=== PATIENT | female | born 1965 | race African-American/Black ===

== ENCOUNTER 2017-10-27 23:29 | Observation (INO) | payer OTHER ==
[2017-10-27] MEDS ORDERED: SODIUM CHLORIDE 0.9% 1,000 ML IV STA (23:33)
[2017-10-27] MEDS ORDERED: LORazepam 2 MG/ML INJ IV STA (23:33)
--- NOTE | 2017-10-27 23:36 | ED ---
General Adult HPI - General Stated complaint: Seizure Time Seen by Provider: 10/27/17 23:33 Source: RN notes reviewed, old records reviewed - History of Present Illness Initial comments: This is a 52-year-old female to the ER for evaluation. Patient is brought in complaining of new onset seizure, for evaluation of seizure. Patient's brought in by EMS, patient had seizure today, patient's going to crack withdrawal, cocaine withdrawal. Patient denies any other drug or alcohol use today. No injury or pain from seizure. No headache. No recent fevers. - Related Data Allergies Allergy/AdvReac Type Severity Reaction Status Date / Time Penicillins Allergy Unknown Unknown Verified 10/27/17 23:39 Review of Systems ROS Statement: Those systems with pertinent positive or pertinent negative responses have been documented in the HPI. ROS Other: All systems not noted in ROS Statement are negative. General Exam Limitations: altered mental status General appearance: alert, in no apparent distress Head exam: Present: atraumatic, normocephalic, normal inspection Eye exam: Present: normal appearance, PERRL, EOMI. Absent: scleral icterus, conjunctival injection, periorbital swelling ENT exam: Present: normal exam, mucous membranes moist Neck exam: Present: normal inspection. Absent: tenderness, meningismus, lymphadenopathy Respiratory exam: Present: normal lung sounds bilaterally. Absent: respiratory distress, wheezes, rales, rhonchi, stridor Cardiovascular Exam: Present: regular rate, normal rhythm, normal heart sounds. Absent: systolic murmur, diastolic murmur, rubs, gallop, clicks GI/Abdominal exam: Present: soft, normal bowel sounds. Absent: distended, tenderness, guarding, rebound, rigid Extremities exam: Present: normal inspection, full ROM, normal capillary refill. Absent: tenderness, pedal edema, joint swelling, calf tenderness Back exam: Present: normal inspection Neurological exam: Present: alert, oriented X3, CN II-XII intact Psychiatric exam: Present: normal affect, normal mood Skin exam: Present: warm, dry, intact, normal color. Absent: rash Course Vital Signs 10/27/17 10/28/17 10/28/17 23:32 00:38 01:40 Temperature 97.9 F Pulse Rate 86 83 66 Respiratory 18 18 18 Rate Blood Pressure 108/73 103/63 97/55 O2 Sat by Pulse 97 98 96 Oximetry 10/28/17 04:28 Temperature Pulse Rate 81 Respiratory 18 Rate Blood Pressure 105/71 O2 Sat by Pulse 96 Oximetry Medical Decision Making - Medical Decision Making 52 female the ER with seizure.patient had This seizure 3. No return to mental status, patient remains postictal. Patient be admitted for neurological evaluation and treatment - Lab Data Result diagrams: 10/27/17 23:49 10/27/17 23:49 Lab Results 10/27/17 10/27/17 Range/Units 23:49 23:49 WBC 6.0 (3.8-10.6) k/uL RBC 4.27 (3.80-5.40) m/uL Hgb 12.3 (11.4-16.0) gm/dL Hct 38.4 (34.0-46.0) % MCV 89.9 (80.0-100.0) fL MCH 28.8 (25.0-35.0) pg MCHC 32.1 (31.0-37.0) g/dL RDW 14.1 (11.5-15.5) % Plt Count 285 (150-450) k/uL Neutrophils % 45 % Lymphocytes % 32 % Monocytes % 11 % Eosinophils % 7 % Basophils % 1 % Neutrophils # 2.7 (1.3-7.7) k/uL Lymphocytes # 1.9 (1.0-4.8) k/uL Monocytes # 0.7 (0-1.0) k/uL Eosinophils # 0.4 (0-0.7) k/uL Basophils # 0.1 (0-0.2) k/uL Sodium 139 (137-145) mmol/L Potassium 4.1 (3.5-5.1) mmol/L Chloride 103 (98-107) mmol/L Carbon Dioxide 26 (22-30) mmol/L Anion Gap 10 mmol/L BUN 30 H (7-17) mg/dL Creatinine 0.80 (0.52-1.04) mg/dL Est GFR (CKD-EPI)AfAm >90 (>60 ml/min/1.73 sqM) Est GFR (CKD-EPI)NonAf 84 (>60 ml/min/1.73 sqM) Glucose 94 (74-99) mg/dL Calcium 9.6 (8.4-10.2) mg/dL Phosphorus 5.1 H (2.5-4.5) mg/dL Magnesium 1.8 (1.6-2.3) mg/dL Total Bilirubin 0.3 (0.2-1.3) mg/dL AST 19 (14-36) U/L ALT 25 (9-52) U/L Alkaline Phosphatase 75 (38-126) U/L Total Protein 6.9 (6.3-8.2) g/dL Albumin 4.1 (3.5-5.0) g/dL Salicylates <1.0 mg/dL Acetaminophen <10.0 ug/mL Serum Alcohol <10 mg/dL - Radiology Data Radiology results: report reviewed (CT brain is negative), image reviewed Disposition Clinical Impression: New onset seizure, Status epilepticus Disposition: ADMITTED IP TO THIS [facility] Condition: Fair
[2017-10-28 00:01] LABS: Basophils # (A) 0.1 k/uL (0-0.2); Basophils % (A) 1 %; Eosinophils # (A) 0.4 k/uL (0-0.7); Eosinophils % (A) 7 %; HCT 38.4 % (34.0-46.0); HGB 12.3 gm/dL (11.4-16.0); Lymphocytes # (A) 1.9 k/uL (1.0-4.8); Lymphocytes % (A) 32 %; MCH 28.8 pg (25.0-35.0); MCHC 32.1 g/dL (31.0-37.0); MCV 89.9 fL (80.0-100.0); Mean Platelet Volume 7.1; Monocytes # (A) 0.7 k/uL (0-1.0); Monocytes % (A) 11 %; Neutrophils # (A) 2.7 k/uL (1.3-7.7); Neutrophils % (A) 45 %; Platelet Count 285 k/uL (150-450); RBC 4.27 m/uL (3.80-5.40); RDW 14.1 % (11.5-15.5)
[2017-10-28 00:12] LABS: ALT 25 U/L (9-52); AST 19 U/L (14-36); Acetaminophen <10.0 ug/mL; Albumin 4.1 g/dL (3.5-5.0); Alcohol <10 mg/dL; Alkaline Phosphatase 75 U/L (38-126); Anion Gap 10 mmol/L; Blood Urea Nitrogen 30 mg/dL (7-17); Calcium 9.6 mg/dL (8.4-10.2); Carbon Dioxide 26 mmol/L (22-30); Chloride 103 mmol/L (98-107); Glucose 94 mg/dL (74-99); Magnesium 1.8 mg/dL (1.6-2.3); Phosphorus 5.1 mg/dL (2.5-4.5); Potassium 4.1 mmol/L (3.5-5.1); Salicylate <1.0 mg/dL; Sodium 139 mmol/L (137-145); Total Bilirubin 0.3 mg/dL (0.2-1.3); Total Protein 6.9 g/dL (6.3-8.2)
--- NOTE | 2017-10-28 00:26 | CT ---
EXAMINATION TYPE: CT brain wo con DATE OF EXAM: 10/28/2017 COMPARISON: NONE HISTORY: seizure CT DLP: 943.80 mGycm Automated exposure control for dose reduction was used. FINDINGS: The ventricles and sulci appear normal. There is no mass effect nor midline shift. There is no sign o f intracranial hemorrhage. There is no evidence of cerebral edema. The calvarium is intact. There is some mucosal thickening in the ethmoid sinus. IMPRESSION: NEGATIVE CT SCAN OF THE BRAIN. MILD ETHMOID SINUSITIS.
[2017-10-28] MEDS ORDERED: SODIUM CHLORIDE 0.9% 1,000 ML IV ONE (03:43)
[2017-10-28] MEDS ORDERED: LORazepam 2 MG/ML INJ IV PRN (03:43)
[2017-10-28] MEDS ORDERED: levETIRAcetam IV 1,000 MG in SALINE 1 100ML.BAG IVPB STA (03:43)
[2017-10-28 05:58] LABS: Amorphous Sediment,Urine Rare /hpf; Appearance,Urine Clear (Clear); Bacteria,Urine Rare /hpf; Bilirubin,Urine Negative (Negative); Blood,Urine Negative (Negative); Color,Urine Yellow; Glucose,Urine (UA) Negative (Negative); Hyaline Casts,Urine 5 /lpf (0-2); Ketones,Urine Negative (Negative); Leukocyte Esterase,Urine Moderate (Negative); Mucus,Urine Rare /hpf; Nitrite,Urine Negative (Negative); PH, Urine 5.5 (5.0-8.0); Protein,Urine Negative (Negative); RBC,Urine <1 /hpf (0-5); Specific Gravity,Urine 1.016 (1.001-1.035); Squamous Epithelial Cell,Urine 2 /hpf (0-4); Urobilinogen,Urine <2.0 mg/dL (<2.0); WBC,Urine 8 /hpf (0-5)
[2017-10-28 06:06] LABS: Amphetamine Screen,Urine Not Detected (NotDetected); Barbiturate Screen,Urine Not Detected (NotDetected); Benzodiazepines Screen,Urine Not Detected (NotDetected); Cocaine Screen,Urine Not Detected (NotDetected); Methadone Screen, Urine Not Detected (NotDetected); Opiate Screen,Urine Not Detected (NotDetected); Oxycodone Screen, Urine Not Detected (NotDetected); Phencyclidine Screen,Urine Not Detected (NotDetected); Tricyclic Antidepressant,Urine Not Detected (NotDetected); Urn Cannabinoid Scrn Not Detected (NotDetected)
[2017-10-28] MEDS: ALBUTEROL NEBULIZED 2.5 MG/3 ML INHALATION PRN ×3 (10:43→20:59)
[2017-10-28] MEDS: levETIRAcetam 500 MG TAB PO SCH ×2 (10:59→20:40)
--- NOTE | 2017-10-28 12:19 | P.CNNES ---
History of Present Illness Consult date: 10/28/17 Reason for Consult: Patient admitted from drug rehab with seizures. History of Present Illness: This patient is a 52-year-old right-handed -[place] female who apparently was at [facility] program for the past 21 days. Apparently she was withdrawing from crack cocaine and was in the rehab program for the past 21 days. She states that she was just not feeling very well and apparently went into a seizure event at the facility. She seemed to come out of the seizure but then relapsed and had a second event. EMS was called to the scene and she had a third event and at that time was taken by EMS and brought into the emergency room at [facility] for further evaluation. She was seen in the ER by Dr. Wagoner who examined her and sent her for a computed tomography scan of the brain. A CAT scan of the brain revealed no acute findings with only mild ethmoid sinusitis. She was given a loading dose of IV Keppra in the ER and admitted to the hospital. The patient has no previous history of seizures. She is known to have history of COPD and asthma. She has been requiring breathing treatments today since admission. She is complaining of severe right wrist pain. We have recommended a plain x- ray of the right wrist to be done to rule out fracture. Patient otherwise seems to be slowly coming around. She did appear to be postictal in the ER but is now back to near baseline level of function. We have recommended patient will need to stay on Keppra for at least 6 months due to the seizure activity. She is also informed of the [place] driving law but states she cannot drive for appear to 6 months following her last seizure. We will obtain a routine EEG for further evaluation of seizure disorder. At this time it appears that she had a secondary seizure from drug withdrawal. We will continue close neurological follow-up for the patient during this admission. Review of Systems Constitutional: Denies chills, Denies fever Eyes: denies blurred vision, denies pain Ears, nose, mouth and throat: Denies headache, Denies sore throat Cardiovascular: Denies chest pain, Denies shortness of breath Respiratory: Denies cough Gastrointestinal: Denies abdominal pain, Denies diarrhea, Denies nausea, Denies vomiting Genitourinary: Denies dysuria, Denies hematuria Musculoskeletal: Denies myalgias Musculoskeletal: right: wrist pain Integumentary: Denies pruritus, Denies rash Neurological: Reports confusion, Reports convulsions, Reports seizures, Reports tingling, Denies numbness, Denies weakness Psychiatric: Denies anxiety, Denies depression Endocrine: Denies fatigue, Denies weight change Past Medical History Additional Past Medical History / Comment(s): poor eyesight History of Any Multi-Drug Resistant Organisms: None Reported Past Surgical History: No Surgical Hx Reported Past Psychological History: No Psychological Hx Reported Smoking Status: Current every day smoker Past Alcohol Use History: None Reported Past Drug Use History: Cocaine Medications and Allergies Home Medications Medication Instructions Recorded Confirmed Type Acetaminophen [Tylenol Arthritis] 650 mg PO Q4H PRN 10/28/17 10/28/17 History Albuterol Inhaler [Ventolin Hfa 1 - 2 puff INHALATION RT-Q6H PRN 10/28/17 History Inhaler] Albuterol Nebulized [Ventolin 2.5 mg INHALATION RT-Q6H PRN 10/28/17 10/28/17 History Nebulized] Chlorpheniramine Maleate 4 mg PO Q4H PRN 10/28/17 10/28/17 History [Chlor-Trimeton] Codeine Phosphate/Guaifenesin 10 ml PO Q4HR PRN 10/28/17 10/28/17 History [Cheratussin AC Syrup] Ibuprofen [Motrin] 600 mg PO Q6H PRN 10/28/17 10/28/17 History Multivitamins, Thera [Multivitamin 1 tab PO DAILY 10/28/17 10/28/17 History (formulary)] Thiamine [Vitamin B-1] 100 mg PO DAILY 10/28/17 10/28/17 History traZODone HCL 50 - 150 mg PO HS 10/28/17 10/28/17 History Allergies Allergy/AdvReac Type Severity Reaction Status Date / Time Penicillins Allergy Unknown Unknown Verified 10/28/17 09:03 Physical Examination - Vital Signs Vital Signs: Vital Signs Temp Pulse Pulse Resp BP BP Pulse Ox 10/28/17 10:55 88 10/28/17 10:44 84 10/28/17 07:00 97.2 F L 84 18 99/66 95 10/28/17 06:41 18 10/28/17 04:28 81 18 105/71 96 10/28/17 01:40 66 18 97/55 96 10/28/17 00:38 83 18 103/63 98 10/27/17 23:32 97.9 F 86 18 108/73 97 Intake and Output 10/27/17 10/28/17 10/28/17 21:59 06:59 14:59 Intake Total 120 Balance 120 Intake: Oral 120 Other: Weight - Constitutional General appearance: average body habitus, cooperative - EENT EENT: PERRL, mucous membranes moist - Respiratory Respiratory: lungs clear, normal breath sounds - Cardiovascular Cardiovascular: regular rate, normal S1, normal S2 Extremities: no peripheral edema bilaterally - Gastrointestinal Gastrointestinal: normoactive bowel sounds - Integumentary Integumentary: normal - Neurologic Cranial nerve examination: PERRL, EOMI, VFF, V1/V2/V3 grossly intact, face symmetric, tongue midline, intact gag reflex, intact corneal reflex, normal palatal elevation Speech examination: intact Sensorimotor examination: intact Motor examination - right side: 4/5: biceps, triceps, wrist flexion, wrist extension, value analyst, hip flexors, knee extensors, dorsiflexion, toe extension (EHL) , plantarflexion Motor examination - left side: 4/5: biceps, triceps, wrist flexion, wrist extension, value analyst, hip flexors, knee extensors, dorsiflexion, toe extension (EHL) , plantarflexion Detailed sensory examination: intact Reflex and gait examination: intact Reflexes: 1+: ankle, bicep, knee, tricep - Musculoskeletal Musculoskeletal: pain in joint (Patient with right wrist pain.) - Psychiatric Psychiatric: mood/affect appropriate, cooperative Results - Laboratory Findings CBC and BMP: 10/27/17 23:49 10/27/17 23:49 Abnormal Lab Findings: Abnormal Labs 10/27/17 10/28/17 23:49 05:11 BUN 30 H Phosphorus 5.1 H Ur Leukocyte Esterase Moderate H Urine WBC 8 H Urine WBC Clumps Rare H Amorphous Sediment Rare H Urine Bacteria Rare H Hyaline Casts 5 H Urine Mucus Rare H Assessment and Plan (1) New onset seizure Current Visit: Yes Status: Acute Code(s): R56.9 - UNSPECIFIED CONVULSIONS SNOMED Code(s): 69299737 (2) Acute encephalopathy Current Visit: Yes Status: Acute Code(s): G93.40 - ENCEPHALOPATHY, UNSPECIFIED SNOMED Code(s): 82767677 (3) Drug withdrawal seizure Current Visit: Yes Status: Acute Code(s): F19.239 - OTH PSYCHOACTIVE SUBSTANCE DEPENDENCE WITH WITHDRAWAL, UNSP; R56.9 - UNSPECIFIED CONVULSIONS SNOMED Code(s): 751185745 (4) Wrist pain, right Current Visit: Yes Status: Acute Code(s): M25.531 - PAIN IN RIGHT WRIST SNOMED Code(s): 52850850 Plan: This patient is a 52-year-old -[place] female who was in the [facility] rehabilitation program and was being treated for crack cocaine abuse. She was slowly being detoxified and had been there for 21 days. Apparently yesterday she had 3 witnessed seizures. She was brought into the emergency room and was seen by Dr. Wagoner. She was sent for computed tomography scan of the brain the results of which came back negative for any acute changes. She was loaded with IV Keppra and admitted to Hospital. Her neurological examination at this time is nonfocal. She does complain of severe wrist pain involving the right wrist joint. We recommend plain x-ray of the right wrist to be done to rule out fracture or dislocation. We will obtain a routine EEG for further evaluation of seizure disorder. She should be maintained on Keppra 500 mg 1 by mouth twice a day. She does have evidence of severe asthma and COPD and will require rest [facility] therapy evaluation. Breathing treatments. Patient is advised of the [place] driving law with state she cannot drive for. To 6 months following her last seizure. She is aware of this restriction. We will continue close neurological follow-up with the patient during this admission. Her overall prognosis at this time remains guarded. Time with Patient: Greater than 30
--- NOTE | 2017-10-28 15:53 | XR ---
EXAMINATION TYPE: XR chest 1V DATE OF EXAM: 10/28/2017 COMPARISON: NONE HISTORY: Shortness of breath TECHNIQUE: Single frontal view of the chest is obtained. FINDINGS: Linear left basilar opacity is present. Remainder the lungs are clear. Cardiomediastinal s ilhouette is within normal limits. Osseous structures appear intact. IMPRESSION: Linear left basilar opacities favored to represent atelectasis although could represent early developing pneumonia in the appropriate clinical setting.
--- NOTE | 2017-10-28 15:55 | XR ---
EXAMINATION TYPE: XR wrist complete RT DATE OF EXAM: 10/28/2017 CLINICAL HISTORY: Radial right-sided wrist pain for one week TECHNIQUE: Frontal, lateral and oblique images of the right wrist are obtained. Scaphoid view was al so obtained COMPARISON: None FINDINGS: There is no acute fracture/dislocation evident in the right wrist. The joint spaces in th e right wrist appear within normal limits other than very mild joint space narrowing and sclerosis at the first carpal metacarpal joint. The overlying soft tissue appears unremarkable. IMPRESSION: There is no acute fracture or dislocation in the right wrist. Very mild degenerative martin nges at the right first carpometacarpal joint.
[2017-10-28] MEDS ORDERED: levETIRAcetam IV 1,000 MG in SALINE 1 100ML.BAG IVPB SCH (17:00)
--- NOTE | 2017-10-28 22:39 | P.HPIM ---
History of Present Illness H&P Date: 10/28/17 Chief Complaint: Seizures Patient is a 52-year-old female with a known history of asthma/COPD, polysubstance abuse who was at [facility] drug rehabilitation for the past 3 weeks. Patient was withdrawing from crack cocaine. Patient was found to have seizure activity with shaking movements of the hands 3. EMS was called and patient was brought to the hospital. Patient never had any history of seizures in the past. CT head showed no acute intracranial process. Showed mild ethmoid sinusitis. Chest x-ray showed linear left basilar atelectasis or possible early developing pneumonia in appropriate clinical setting. Patient was also complaining of right wrist pain. X-ray of the wristany fracture or dislocation. Degenerative changes were noted. Patient was given IV Keppra in the ER and was admitted to the hospital for neurology evaluation. EEG was ordered. Currently patient is more awake and notable to give history briefly. Patient does have chronic vision problems. Review of Systems Constitutional: Patient denies any fever or chills . No generalized weakness or weight loss. Abdomen: Patient denied nausea vomiting and diarrhea and abdominal pain. Cardiovascular: Patient denies any chest pain or short of breath no palpitations. Respiratory: patient denied any cough is from production. No shortness of breath Neurologic: Patient denied any numbness or tingling headache. Musculoskeletal: Patient denies any complaints of joint swelling or deformity. Skin: Negative Psychiatric: Negative Endocrine: No heat or cold intolerance. No recent weight gain. Genitourinary: No dysuria or hematuria. All other 14 point ROS negative except the above Past Medical History Additional Past Medical History / Comment(s): poor eyesight History of Any Multi-Drug Resistant Organisms: None Reported Past Surgical History: No Surgical Hx Reported Past Psychological History: No Psychological Hx Reported Smoking Status: Current every day smoker Past Alcohol Use History: None Reported Past Drug Use History: Cocaine Medications and Allergies Home Medications Medication Instructions Recorded Confirmed Type Acetaminophen [Tylenol Arthritis] 650 mg PO Q4H PRN 10/28/17 10/28/17 History Albuterol Inhaler [Ventolin Hfa 1 - 2 puff INHALATION RT-Q6H PRN 10/28/17 History Inhaler] Albuterol Nebulized [Ventolin 2.5 mg INHALATION RT-Q6H PRN 10/28/17 10/28/17 History Nebulized] Chlorpheniramine Maleate 4 mg PO Q4H PRN 10/28/17 10/28/17 History [Chlor-Trimeton] Codeine Phosphate/Guaifenesin 10 ml PO Q4HR PRN 10/28/17 10/28/17 History [Cheratussin AC Syrup] Ibuprofen [Motrin] 600 mg PO Q6H PRN 10/28/17 10/28/17 History Multivitamins, Thera [Multivitamin 1 tab PO DAILY 10/28/17 10/28/17 History (formulary)] Thiamine [Vitamin B-1] 100 mg PO DAILY 10/28/17 10/28/17 History traZODone HCL 50 - 150 mg PO HS 10/28/17 10/28/17 History Allergies Allergy/AdvReac Type Severity Reaction Status Date / Time Penicillins Allergy Unknown Unknown Verified 10/28/17 09:03 Physical Exam Vitals: Vital Signs Temp Pulse Pulse Resp BP BP Pulse Ox 10/28/17 10:55 88 10/28/17 10:44 84 10/28/17 07:00 97.2 F L 84 18 99/66 95 10/28/17 06:41 18 10/28/17 04:28 81 18 105/71 96 10/28/17 01:40 66 18 97/55 96 10/28/17 00:38 83 18 103/63 98 10/27/17 23:32 97.9 F 86 18 108/73 97 Intake and Output 10/27/17 10/28/17 10/28/17 21:59 06:59 14:59 Intake Total 120 Balance 120 Intake: Oral 120 Other: Weight PHYSICAL EXAMINATION: Patient is lying in the bed comfortably, no acute distress, awake alert and oriented. Patient does have specific drunk voice.. HEENT: Normocephalic. Neck is supple. Pupils reactive. Nostrils clear. Oral cavity is moist. Ears reveal no drainage. Neck reveals no JVD, carotid bruits, or thyromegaly. CHEST EXAMINATION: Trachea is central. Symmetrical expansion. Lung hughes clear to auscultation and percussion. CARDIAC: Normal S1, S2 with no gallops. No murmurs ABDOMEN: Soft. Bowel sounds normal. No organomegaly. No abdominal bruits. Extremities: reveal no edema. No clubbing or cyanosis Neurologically awake, alert, oriented x3 with well-coordinated movements. No focal deficits noted Skin: No rash or skin lesions. Psychiatric: Cooperative. Nonsuicidal Musculoskeletal: No joint swelling or deformity. Normal range of motion. Results CBC & Chem 7: 10/27/17 23:49 10/27/17 23:49 Labs: Abnormal Lab Results - Last 24 Hours (Table) 10/27/17 10/28/17 Range/Units 23:49 05:11 BUN 30 H (7-17) mg/dL Phosphorus 5.1 H (2.5-4.5) mg/dL Ur Leukocyte Esterase Moderate H (Negative) Urine WBC 8 H (0-5) /hpf Urine WBC Clumps Rare H (None) /hpf Amorphous Sediment Rare H (None) /hpf Urine Bacteria Rare H (None) /hpf Hyaline Casts 5 H (0-2) /lpf Urine Mucus Rare H (None) /hpf Thrombosis Risk Factor Assmnt - DVT/VTE Prophylaxis DVT/VTE Prophylaxis: Pharmacologic Prophylaxis ordered - Choose All That Apply Any of the Below Risk Factors Present?: Yes Each Factor Represents 1 point: Age 41-60 years Thrombosis Risk Factor Assessment Total Risk Factor Score: 1 Thrombosis Risk Factor Assessment Level: Low Risk Assessment and Plan Assessment: New onset seizures. Possible drug withdrawal Patient is in [facility] for the past 3 weeks for crack cocaine withdrawal Asthma Left lower lobe linear atelectasis. Unlikely pneumonia. Patient does not have any fever or chills no leukocytosis or pleuritic chest pain. DVT prophylaxis Plan: Patient will be continued on Keppra as per neurology recommendations. EEG was ordered . monitor for withdrawal symptoms. Incentive spirometry and continue with breathing treatments. Further recommendations based on the clinical course. Time with Patient: Greater than 30
[2017-10-28 23:57] VITALS: RESP 16
[2017-10-29] MEDS: ALBUTEROL NEBULIZED 2.5 MG/3 ML INHALATION PRN ×2 (06:53→12:47)
[2017-10-29] MEDS ORDERED: HEPARIN SODIUM,PORCINE 5,000 UNIT/ML 1 ML VIAL SQ SCH (09:00)
[2017-10-29 11:05] LABS: HCT 40.5 % (34.0-46.0); HGB 13.6 gm/dL (11.4-16.0); MCH 29.7 pg (25.0-35.0); MCHC 33.5 g/dL (31.0-37.0); MCV 88.6 fL (80.0-100.0); Mean Platelet Volume 6.9; Platelet Count 351 k/uL (150-450); RBC 4.57 m/uL (3.80-5.40); RDW 13.9 % (11.5-15.5); WBC 5.5 k/uL (3.8-10.6)
[2017-10-29] MEDS: levETIRAcetam 500 MG TAB PO SCH (11:26)
[2017-10-29 11:31] LABS: Anion Gap 12 mmol/L; Blood Urea Nitrogen 21 mg/dL (7-17); Calcium 10.5 mg/dL (8.4-10.2); Carbon Dioxide 27 mmol/L (22-30); Chloride 102 mmol/L (98-107); Glucose 87 mg/dL (74-99); Potassium 4.9 mmol/L (3.5-5.1); Sodium 141 mmol/L (137-145)
[2017-10-29] MEDS ORDERED: MULTIVITAMINS, THERA 1 EACH TAB PO SCH (12:00)
[2017-10-29] MEDS ORDERED: THIAMINE 100 MG TAB PO SCH (12:00)
[2017-10-29 12:48] LABS: Nucleated Red Blood Cells 0 /100 WBC (0-0)
[2017-10-29 12:52] LABS: Band Neutrophils % 1 %; Eosinophils # (M) 0.28 k/uL (0-0.7); Lymphocytes # (M) 2.48 k/uL (1.0-4.8); Monocytes # (M) 0.88 k/uL (0-1.0); Neutrophils % (M) 34 %; Total Cells Counted 200
[2017-10-29] MEDS ORDERED: SIMETHICONE 80 MG CHEWABLE PO PRN (14:32)
[2017-10-29 15:25] VITALS: BP 108/74; PULSE 82; TEMP 98.4
--- NOTE | 2017-10-29 23:21 | P.DS ---
Providers Date of admission: 10/28/17 03:45 Expected date of discharge: 10/29/17 Attending physician: Albert Rasmussen Consults: 10/28/17 03:43 Consult Physician Routine Consulting Provider: Kenny Waggoner Consult Reason/Comments: sz Do you want consulting provider notified?: Yes Primary care physician: Stated None Hospital Course: Discharge diagnosis New onset seizures. Possible drug withdrawal Patient is in [facility] for the past 3 weeks for crack cocaine withdrawal Asthma. Stable Left lower lobe linear atelectasis. Unlikely pneumonia. Patient does not have any fever or chills no leukocytosis or pleuritic chest pain. DVT prophylaxis Hospital course Patient is a 52-year-old female with a known history of asthma/COPD, polysubstance abuse who was at [facility] drug rehabilitation for the past 3 weeks. Patient was withdrawing from crack cocaine. Patient was found to have seizure activity with shaking movements of the hands 3. EMS was called and patient was brought to the hospital. Patient never had any history of seizures in the past. CT head showed no acute intracranial process. Showed mild ethmoid sinusitis. Chest x-ray showed linear left basilar atelectasis or possible early developing pneumonia in appropriate clinical setting. Patient was also complaining of right wrist pain. X-ray of the wristany fracture or dislocation. Degenerative changes were noted. Patient was given IV Keppra in the ER and was admitted to the hospital for neurology evaluation. EEG was ordered. Currently patient is more awake and notable to give history briefly. Patient does have chronic vision problems. Patient was continued on Keppra as per neurology recommendations. EEG was ordered . monitor for withdrawal symptoms. No further episodes of seizures while in the ER. Incentive spirometry and continue with breathing treatments. Patient did improve clinically. Otherwise patient is stable to discharge to home and follow up with [facility] after that. Discharge physical exam is was done and vitals reviewed. Patient Condition at Discharge: Fair Plan - Discharge Summary New Discharge Prescriptions: New levETIRAcetam [Keppra] 500 mg PO Q12HR #60 tab Continue Codeine Phosphate/Guaifenesin [Cheratussin AC Syrup] 10 ml PO Q4HR PRN PRN Reason: Cough traZODone HCL 50 - 150 mg PO HS Albuterol Inhaler [Ventolin Hfa Inhaler] 1 - 2 puff INHALATION RT-Q6H PRN PRN Reason: Shortness Of Breath Chlorpheniramine Maleate [Chlor-Trimeton] 4 mg PO Q4H PRN PRN Reason: Allergy Symptoms Albuterol Nebulized [Ventolin Nebulized] 2.5 mg INHALATION RT-Q6H PRN PRN Reason: Shortness Of Breath Thiamine [Vitamin B-1] 100 mg PO DAILY Ibuprofen [Motrin] 600 mg PO Q6H PRN PRN Reason: Pain Or Fever > 100.5 Acetaminophen [Tylenol Arthritis] 650 mg PO Q4H PRN PRN Reason: Pain Or Fever > 100.5 Multivitamins, Thera [Multivitamin (formulary)] 1 tab PO DAILY Discharge Medication List Acetaminophen [Tylenol Arthritis] 650 mg PO Q4H PRN 10/28/17 [History] Albuterol Inhaler [Ventolin Hfa Inhaler] 1 - 2 puff INHALATION RT-Q6H PRN [History] Albuterol Nebulized [Ventolin Nebulized] 2.5 mg INHALATION RT-Q6H PRN 10/28/17 [ History] Chlorpheniramine Maleate [Chlor-Trimeton] 4 mg PO Q4H PRN 10/28/17 [History] Codeine Phosphate/Guaifenesin [Cheratussin AC Syrup] 10 ml PO Q4HR PRN 10/28/17 [History] Ibuprofen [Motrin] 600 mg PO Q6H PRN 10/28/17 [History] Multivitamins, Thera [Multivitamin (formulary)] 1 tab PO DAILY 10/28/17 [History ] Thiamine [Vitamin B-1] 100 mg PO DAILY 10/28/17 [History] traZODone HCL 50 - 150 mg PO HS 10/28/17 [History] levETIRAcetam [Keppra] 500 mg PO Q12HR #60 tab 10/29/17 [Rx] Follow up Appointment(s)/Referral(s): [facility] [Outside] - 10/29/17 3:00 pm (D/C plan in place to return to [facility] at discharge. ) Kenny Waggoner MD [STAFF PHYSICIAN] - 2 Weeks None,Stated [Primary Care Provider] - 1-2 days Patient Instructions/Handouts: How to Stop Smoking (DC), New-Onset Seizure in Adults (ED) Discharge Disposition: HOME SELF-CARE
--- NOTE | 2017-10-29 23:51 | EEG ---
ELECTROENCEPHALOGRAM REPORT DATE OF EE10/29/2017 REFERRING PHYSICIAN: Dr. Rasmussen. CONSULTING AND INTERPRETING PHYSICIAN: Dr. Kenny Waggoner. ELECTROENCEPHALOGRAPHIC EXAMINATION REPORT: INDICATION FOR EXAMINATION: This patient is a 52-year-old female being evaluated for new onset seizure. AGE: 52. EEG FINDINGS: A routine 21 channel awake digital EEG recording was accomplished utilizing the 10-20 international system with bipolar and referential montages. The background activity in the most alert resting state consists of a low to medium amplitude, fairly well- developed and well-sustained 8 Hz activity over the posterior head region. This posterior rhythm attenuates to eye opening. There is a small amount of low amplitude 18-20 Hz beta activity seen maximally over the anterior head regions. Muscle and movement artifact was observed on a few occasions during the tracing. Hyperventilation was not performed. Photic stimulation and flash frequencies of 2-30 Hz produced a good symmetrical occipital driving response. No epileptiform discharges were seen. IMPRESSION: This EEG is within normal limits for the patient's age. The EEG failed to reveal any focal, lateralized, or epileptiform abnormalities. Clinical correlation is recommended. MMODL / IJN: [id number] /
== END 2017-10-29 16:47 | disposition home or self-care (01) ==
LOC: EC 23:29 → 4MS4W 10-28 03:45
PROVIDERS: ADMIT Hospitalist; ATTEND Hospitalist
DX: R56.9 Unspecified convulsions (principal); F14.23 Cocaine dependence with withdrawal; J44.9 Chronic obstructive pulmonary disease, unspecified; J98.11 Atelectasis; M25.531 Pain in right wrist; G93.40 Encephalopathy, unspecified; F17.200 Nicotine dependence, unspecified, uncomplicated; F19.10 Other psychoactive substance abuse, uncomplicated; Z88.0 Allergy status to penicillin
CPT/HCPCS: 96361 ×8; 96375 ×2; 96365 ×2; 99285 ×2; 96376; 96372; 36415; 94640 ×4; 95819; 80053; 80048; 80177; 83735; 84100; 85025 ×2; 81001; 80306; 83520 ×2; 80320; 73110; 71045; 70450; G0378 ×2; J2060; J1644; J1953